=== PATIENT | female | born 1995 | race Caucasian/White ===

== ENCOUNTER 2019-05-20 23:35 | Emergency (ER) | payer MEDICAID ==
[~2019-05-20] VITALS: Ht 142.2 cm; Wt 58.0 kg
[~2019-05-20 23:35] MED LIST: DICY10CA40 PO; ONDA4TAB14 PO; PRENAT PO; SIME80TA63 PO
[2019-05-20 23:42] VITALS: Ht 142.2 cm; Wt 58.0 kg
[2019-05-21] MEDS ORDERED: DICYCLOMINE 10 MG CAP PO ONE (03:00)
[2019-05-21 03:20] VITALS: BP 119/73; PULSE 62; RESP 19
== END 2019-05-21 03:20 | disposition home or self-care (01) ==
LOC: FTE 23:35
DX: R10.84 Generalized abdominal pain (principal)
CPT/HCPCS: 81003; 81025; Z7502; Z7610; 99283